=== PATIENT | male | born 1975 | race Caucasian/White ===

== ENCOUNTER 2020-10-13 08:59 | Inpatient (IN) | payer BC ==
[~2020-10-13] VITALS: Ht 198.1 cm; Wt 109.1 kg
[2020-10-13 10:00] LABS: BASO % 0.2 % (0.0-2.0); GRAN # 17.1 (1.4-6.5); GRAN % 85.3 % (42.2-75.2); HEMOGLOBIN 17.7 g/dl (13.5-18.0); LYMPH # 2.1 (1.2-3.4); LYMPH % 10.5 % (20.0-51.0); MEAN CELL VOLUME 89 fl (80.0-100.0); MEAN CORPUSCULAR HEMOGLOBIN 30 pg (27.0-31.0); MEAN CORPUSCULAR HGB CONC 34 g/dl (33.0-37.0); MEAN PLATELET VOLUME 8.8 fl (7.4-10.4); MONO # 0.7 (0.1-0.6); MONO % 3.6 % (1.7-9.3); PLATELET COUNT 418 K/mm3 (130-400); RED BLOOD COUNT 5.86 M/mm3 (4.20-5.60); REDCELL DISTRIBUTION WIDTH-CV 12.8 % (11.5-14.5)
[2020-10-13 10:10] LABS: ALBUMIN 5.4 gm/dL (3.5-5.0); BILIRUBIN,TOTAL 1.2 mg/dL (0.0-1.0); C-REACTIVE PROTEIN 0.8 mg/dL (0.0-0.9); CREATININE, serum 0.87 (0.66-1.25); POTASSIUM 4.4 mmol/L (3.4-5.0); TOTAL PROTEIN 9.6 gm/dL (6.4-8.2)
[2020-10-13 10:48] LABS: COLLECTION METHOD CLEAN CATCH
[2020-10-13 10:59] LABS: MUCOUS Present /lpf; PH 8 (5-8); SQUAMOUS EPITHELIAL 0-2 /hpf; URINE APPEARANCE Hazy; URINE BACTERIA None Seen /hpf; URINE BILIRUBIN Negative (NEGATIVE); URINE BLOOD 1+ (NEGATIVE); URINE COLOR Yellow; URINE GLUCOSE Negative (NEGATIVE); URINE KETONE 1+ (NEGATIVE); URINE LEUKOCYTE ESTERASE Negative (NEGATIVE); URINE NITRATE Negative (NEGATIVE); URINE PROTEIN(semi-quant) 1+ (NEGATIVE)
--- NOTE | 2020-10-13 14:15 | NUR ---
Patient to room 330 by wheelchair from the ER with girlfriend. Patient A&Ox4. VSS. IV CDI. Reporting pain in abdomen, but not requesting pain medication. Nurse oriented the patient to location, call light and room. Patient NPO and aware. Patient verbalized an understanding. No further needs expressed. Call light within reach
[2020-10-13 14:25] VITALS: BP 135/79; PULSE 60; TEMP 97.7
[2020-10-13 16:00] VITALS: BP 126/77; PULSE 67; TEMP 97.3
--- NOTE | 2020-10-13 17:16 | NUR ---
Patient was independent in the room and nurse was present when patient transfered from the bed to the wheelchair. VSS. IV CDI. Pain medication given when requested for pain in right leg. Right leg dressing reenforced with dressing per Dr. Ivey order. Right leg elevated on pillow. No further needs expressed from the patient. Call light within reach
--- NOTE | 2020-10-13 18:25 | NUR ---
Patient laying in bed, girlfriend at the bedside. Patient stated that he had 2 liquid BM's and feels like his abdomen is not as tight. VSS. IV CDI, fluids infusing. Denies pain and discomfort. Patient has ice chips at the bedside. Patient independent in the room and nurse encouraging ambulation. Call light within reach. No further needs expressed
--- NOTE | 2020-10-13 19:06 | NUR ---
PT AMB IN [facility]. [facility]SSES WE[facility]. PT REPORTED HAVING TWO SMALL LOOSE STOOLS TODAY AND PASSING FLATUS. NO NAUSEA.
[2020-10-13 20:03] VITALS: BP 128/74; PULSE 73; TEMP 98.4
[2020-10-13 23:46] VITALS: BP 120/68; PULSE 71; TEMP 98.3
[2020-10-14 03:34] VITALS: BP 126/55; PULSE 68; TEMP 98.2
[2020-10-14 06:22] LABS: BASO % 0.1 % (0.0-2.0); EOS % 0.2 % (0-4.0); GRAN # 11.2 (1.4-6.5); GRAN % 72.2 % (42.2-75.2); HEMATOCRIT 42.3 % (42.0-52.0); LYMPH # 3.2 (1.2-3.4); LYMPH % 20.6 % (20.0-51.0); MEAN CELL VOLUME 91 fl (80.0-100.0); MEAN CORPUSCULAR HEMOGLOBIN 30 pg (27.0-31.0); MEAN CORPUSCULAR HGB CONC 33 g/dl (33.0-37.0); MEAN PLATELET VOLUME 9.3 fl (7.4-10.4); MONO % 6.4 % (1.7-9.3); PLATELET COUNT 344 K/mm3 (130-400); RED BLOOD COUNT 4.64 M/mm3 (4.20-5.60); REDCELL DISTRIBUTION WIDTH-CV 13.2 % (11.5-14.5)
[2020-10-14 06:43] LABS: C-REACTIVE PROTEIN 1.5 mg/dL (0.0-0.9); CALCIUM 8.6 mg/dL (8.4-10.2); CREATININE, serum 0.79 (0.66-1.25); POTASSIUM 4.2 mmol/L (3.4-5.0)
[2020-10-14 08:00] VITALS: BP 125/73; PULSE 74; TEMP 98.1
--- NOTE | 2020-10-14 08:00 | NUR ---
PATIENT IS A&O. VSS. DENIES PAIN. PATIENT REPORTS HE IS PASSING GAS AND HAD A LOOSE STOOLS LAST NIGHT. PATIENT HAS HX OF CROHN'S. NPO. IV ABX INFUSING INTO RIGHT AC IV. NO C/O N/V. GI CONSULTED. HEAD TO TOE ASSESSMENT COMPLETE. AT BEDSIDE. NO OTHER NEEDS. CALL LIGHT IN REACH.
--- NOTE | 2020-10-14 09:40 | NUR ---
PATIENT AMBULATING IN HALLS WITH . TOLERATING ACTIVITY WELL.
--- NOTE | 2020-10-14 10:02 | NUR ---
SW met with patient to complete intake. Spouse Tawny present [phone]. Patient provides that he lives in [facility] with spouse. He also provides that he does not utilize DME and is independent with ADL's. patient states that he does not have a PCP. SW informed patient that the case management team can assist with setting an appoint. to obtain PCP. Patient states he plans to return home up on DC and does not wish to complete DPOA documentation at this time. SW will continue to follow. DC plan: home with spouse.
[2020-10-14 12:00] VITALS: BP 144/91; PULSE 64; TEMP 98.4
--- NOTE | 2020-10-14 12:00 | NUR ---
PATIENT GOING DOWN TO RADIOLOGY FOR CT SCAN. STOOL SAMPLE COLLECTED AND SENT TO [facility]. PATIENT OFF FLOOR, LEAVING FOR A WHILE.
[2020-10-14] MEDS ORDERED: PREDNISONE10 MG PO (12:13)
[2020-10-14] MEDS ORDERED: CIPRO 500MG TA500 MG PO (15:28)
[2020-10-14] MEDS ORDERED: FLAGYL 250250 MG/TAB PO (15:29)
[2020-10-14] MEDS ORDERED: BACID PROBIOTIC1 TAB PO (15:32)
--- NOTE | 2020-10-14 16:20 | NUR ---
PATIENT DISCHARGING HOME VIA AMBULATORY TO PERSONAL VEHICLE WITH . GAVE DISCHARGE INSTRUCTIONS, E-SCRIPTS SENT, AND DISCUSSED F/U APTS. ANSWERED QUESTIONS/CONCERNS. DC'D RIGHT AC IV, COVERED SITE WITH STEPHANI & RADHA. PATIENT GIVEN WORK RELEASE SCRIPTS. PATIENT IS DRESSED, PACKED AND DISCHARGED.
[2020-10-15 17:43] LABS: HEPATITIS B SURFACE ANTIBODY <2.0 (())
[2020-10-16 12:55] LABS: HEPATITIS AB (HAV) IGG INDEX 0.24 Index (<=1.00)
[2020-10-16 15:57] LABS: TB GOLD INTERPRETATION Negative (Negative)
== END 2020-10-14 16:20 | disposition home or self-care (01) | DRG 387 ==
LOC: COL.ER 08:59 → SURG 11:44
PROVIDERS: Family Medicine; Internal Medicine Gastroenterology; ADMIT Internal Medicine
DX: K50.012 Crohn's disease of small intestine with intestinal obstruction (principal); F17.200 Nicotine dependence, unspecified, uncomplicated; Z98.52 Vasectomy status
CPT/HCPCS: 99222-AI; 99239; J0692; J1650; J2270; J2405; J2920; J7030; J7120; Q9967

== ENCOUNTER 2024-01-14 09:36 | Inpatient (IN) | payer BC ==
[~2024-01-14] VITALS: Ht 198.1 cm; Wt 112.0 kg
[~2024-01-14 09:36] MED LIST: BACID PROBIOTIC1 TAB PO; CIPRO 500MG TA500 MG PO; FLAGYL 250250 MG/TAB PO; PREDNISONE10 MG PO
[2024-01-14] MEDS ORDERED: NS 1,000 ML IV ONE (10:30)
[2024-01-14] MEDS ORDERED: Ondansetron 4 MG/2 ML VIAL IV ONE (10:30)
[2024-01-14 10:51] LABS: BASO # 0.1 K/mm3 (0.0-0.2); BASO % 0.3 % (0.0-2.0); EOS # 0.1 K/mm3 (0.0-0.7); EOS % 0.8 % (0.0-4.0); GRAN # 9.7 K/mm3 (1.4-6.5); GRAN % 65.8 % (42.2-75.2); HEMATOCRIT 49.8 % (42.0-52.0); HEMOGLOBIN 16.8 g/dl (13.5-18.0); LYMPH # 3.9 K/mm3 (1.2-3.4); LYMPH % 26.8 % (20.0-51.0); MEAN CELL VOLUME 91 fl (80.0-100.0); MEAN CORPUSCULAR HEMOGLOBIN 31 pg (27-31); MEAN CORPUSCULAR HGB CONC 34 g/dl (33.0-37.0); MEAN PLATELET VOLUME 9.4 fl (7.4-10.4); MONO # 0.9 K/mm3 (0.1-0.6); MONO % 5.9 % (1.7-9.3); PLATELET COUNT 364 K/mm3 (130-400); RED BLOOD COUNT 5.47 M/mm3 (4.20-5.60); REDCELL DISTRIBUTION WIDTH-CV 12.9 % (11.5-14.5)
[2024-01-14 11:17] LABS: ALBUMIN 4.5 g/dL (3.5-5.0); CALCIUM 10.2 mg/dL (8.4-10.2); CREATININE, serum 0.85 mg/dL (0.72-1.25); POTASSIUM 4.8 mEq/L (3.5-4.5); TOTAL PROTEIN 8.5 g/dl (6.2-8.1)
[2024-01-14] MEDS ORDERED: Iohexol 300 - 100 ML VIAL IV ONE (11:45)
[2024-01-14] MEDS ORDERED: NS 100 ML IV SCH (11:46)
[2024-01-14 12:22] LABS: COLLECTION METHOD CLEAN CATCH
[2024-01-14 12:33] LABS: PH 7.5 (5.0-8.5); URINE APPEARANCE CLEAR (CLEAR/HAZY); URINE BLOOD TRACE (NEGATIVE); URINE COLOR YELLOW (YELLOW); URINE GLUCOSE NEGATIVE (NEGATIVE); URINE KETONE NEGATIVE (NEGATIVE); URINE NITRATE NEGATIVE (NEGATIVE); URINE PROTEIN(semi-quant) NEGATIVE (NEGATIVE); URINE UROBILINOGEN 0.2 E.U/dL (0.2-1.0)
[2024-01-14] MEDS ORDERED: LR 1,000 ML IV SCH (14:30)
[2024-01-14] MEDS ORDERED: Ondansetron 4 MG/2 ML VIAL IV PRN (15:00)
[2024-01-14] MEDS ORDERED: metroNIDAZOLE 100 ML IV SCH (15:00)
[2024-01-14] MEDS ORDERED: Morphine 4 MG/ML VIAL IV ONE (15:00)
[2024-01-14] MEDS ORDERED: Morphine 4 MG/ML VIAL IV PRN (16:30)
[2024-01-14] MEDS ORDERED: NS 1,000 ML IV SCH (16:45)
[2024-01-14 17:34] VITALS: BP 148/88; PULSE 69; TEMP 98.6
--- NOTE | 2024-01-14 17:45 | NUR ---
Pt up to surgical floor from ED, pt sitting in chair, awake, alert and oriented. States his pain is much improved after getting dose of pain medication in the ED. States he had a scant amount of watery BM after arriving up to the floor, states he feels like he will be able to try to have a BM again soon. Denies nausea. Independent in room, states he will ambulate in hallway. Oriented to room, call light within reach.
[2024-01-14 18:00] VITALS: BP_SYST 148
--- NOTE | 2024-01-14 18:53 | NUR ---
PATIENT SITTING UP IN BEDSIDE RECLINER WITH AT CHAIRSIDE WITH TV OFF WITH NO ACUTE DISTRESS NOTED. PATIENT ON ROOM AIR. INT TO LEFT HAND INTACT WITH NO COMPLICATIONS NOTED. NS INFUSING INTO RIGHT FOREARM WITH NO COMPLICATIONS NOTED. BEDSIDE SHIFT REPORT COMPLETED WITH MALI AT THIS TIME. PATIENT C/O OF ACID REFLUX AND BLOATING. PATIENT VERBALIZED UNDERSTANDING THAT MD WOULD BE CALLED. PATIENT DENIES ANY OTHER NEEDS. RECLINER LOCKED AND CALL LIGHT WITHIN REACH.
--- NOTE | 2024-01-14 19:11 | NUR ---
HOSPITALIST JOSE MIGUEL PRAKASH CALLED FOR PATIENT C/O ACID REFLUX AND BLOATING. ORDERS RECIEVED FOR PROTONIX 20MG PO TIME ONE AND MYLICON 80MG PO FOUR TIMES A DAY PRN FOR GAS PAIN.
--- NOTE | 2024-01-14 19:26 | NUR ---
PATIENT UP WALKING IN HALLWAY WITH AT THIS TIME. PATIENT AMBULATED BACK TO ROOM. PATIENT GAIT STEADY. PATIENT ON ROOM AIR. INT TO LEFT HAND INTACT WITH NO COMPLICATIONS NOTED. NS INFUSING INTO RIGHT FOREARM WITH NO COMPLICATIONS NOTED. ASSESSMENT AND MEDICATION ADMINISTRATION COMPLETED AT THIS TIME. PATIENT TOLERATED WELL. SEE EMAR. PATIENT DENEIS ANY PAIN AT THIS TIME. PATIENT AMBULATED TO RECLINER AND SAT DOWN. PATIENT DENIES ANY NEEDS. RECLINER LOCKED AND CALL LIGHT WITHIN REACH.
[2024-01-14 20:21] VITALS: BP 128/80; PULSE 68; TEMP 98.3
[2024-01-14 20:30] VITALS: BP_SYST 128
[2024-01-14 23:58] VITALS: BP 143/82; PULSE 66; TEMP 98.2
[2024-01-15 00:05] VITALS: BP_SYST 143
--- NOTE | 2024-01-15 03:40 | NUR ---
HOSPITALIST JOSE MIGUEL PRAKASH CALLED FOR PATIENT C/O HEADACHE. ORDER RECIEVED FOR TYLENOL 650 MG PO EVERY 6 HOURS PRN FOR PAIN AND FEVER.
[2024-01-15] MEDS ORDERED: Acetaminophen 325 MG TAB PO PRN (03:45)
[2024-01-15 03:56] VITALS: BP 132/77; PULSE 65; TEMP 98.1
[2024-01-15 04:00] VITALS: BP_SYST 132
[2024-01-15 07:14] LABS: BASO % 0.3 % (0.0-2.0); EOS # 0.2 K/mm3 (0.0-0.7); GRAN # 7.3 K/mm3 (1.4-6.5); GRAN % 61.8 % (42.2-75.2); HEMATOCRIT 43.7 % (42.0-52.0); LYMPH # 3.5 K/mm3 (1.2-3.4); LYMPH % 29.3 % (20.0-51.0); MEAN CELL VOLUME 91 fl (80.0-100.0); MEAN CORPUSCULAR HEMOGLOBIN 31 pg (27-31); MEAN CORPUSCULAR HGB CONC 34 g/dl (33.0-37.0); MEAN PLATELET VOLUME 9.4 fl (7.4-10.4); MONO # 0.7 K/mm3 (0.1-0.6); MONO % 6.2 % (1.7-9.3); PLATELET COUNT 306 K/mm3 (130-400); RED BLOOD COUNT 4.79 M/mm3 (4.20-5.60)
[2024-01-15 07:20] VITALS: BP 136/92; PULSE 64; TEMP 98.1
[2024-01-15 07:23] LABS: CALCIUM 8.5 mg/dL (8.4-10.2); CREATININE, serum 0.86 mg/dL (0.72-1.25); POTASSIUM 3.9 mEq/L (3.5-4.5)
--- NOTE | 2024-01-15 07:26 | NUR ---
BEDSIDE SHIFT REPORT RECIEVED AT THIS TIME
[2024-01-15 07:27] LABS: HEMOGLOBIN 14.7 g/dl (13.5-18.0)
--- NOTE | 2024-01-15 07:56 | NUR ---
SHIFT ASSESSMENT COMPLETED AT THIS TIME. PT A&OX4. PT DENIES PAIN, NAUSEA AND SOB AT THIS TIME. PT IS STANDING AT SINK BRUSHING TEETH UPON ENTRANCE. PT REQUESTS BREAKFAST AND REPORTS HAVING 4-5 BOWEL MOVEMENTS THROUGHOUT THE NIGHT. PT REQUESTS GOING HOME THIS MORNING AND STATES HE IS FELLING ALOT BETTER THAN YESTERDAY. PT HAS INT TO L HAND AND IVF INFUSING IN LEFT FA. NO OTHER NEEDS AT THIS TIME.
[2024-01-15 09:00] VITALS: BP_SYST 136
--- NOTE | 2024-01-15 11:21 | NUR ---
high worker met with patient to discuss discharge planning. Patient lives in [place]. Dia (girlfriend) P# [phone], Tracee (daughter) P# [phone]. No PCP, rn social work discussed options in [place]. Patient stated he would prefer a male doctor. SW updated community planner to see if they can get patient a follow up appointment scheduled before patient discharges today. Pharmacy is [facility]. No issues affording medications. No DPOA-HC and not interested in completing one. Patient is aware his daughter would be his next of kin for decision making unless his girlfriend and he were to . No DME, patient reports to be independent with ADLS. Patient is able to transport to and from appointments. Discharge plan: Home
[2024-01-15 11:45] VITALS: BP 147/93; PULSE 62; TEMP 98.3
[2024-01-15] MEDS ORDERED: AMOXICILLIN 8751 TAB PO (12:34)
--- NOTE | 2024-01-15 12:46 | NUR ---
discharge orders recieved at this time. INT's dc'd. discharge instructions provided at this time. pt verbalises understanding. pt escorted to private vehicle by pct.
--- NOTE | 2024-01-15 14:10 | NUR ---
Patient was set up with Dr. Mcgrath for his follow up appointment and the community recreation coordinator was able to provide him with the date and time. Discharge plan: Home
== END 2024-01-15 12:56 | disposition home or self-care (01) | DRG 392 ==
LOC: COL.ER 09:36 → SURG 14:27
PROVIDERS: Physician Assistant; ADMIT Internal Medicine
DX: K52.9 Noninfective gastroenteritis and colitis, unspecified (principal); K56.609 Unspecified intestinal obstruction, unspecified as to partial versus complete obstruction; F10.20 Alcohol dependence, uncomplicated; R91.1 Solitary pulmonary nodule; Z98.52 Vasectomy status; F12.20 Cannabis dependence, uncomplicated; R03.0 Elevated blood-pressure reading, without diagnosis of hypertension
CPT/HCPCS: J1836; J1956; J2270; J2405; J7030; J7120; Q9967